=== PATIENT | male | born 1975 | race Caucasian/White ===

== ENCOUNTER 2024-01-10 18:29 | Emergency (ER) | payer OTHER, SELFPAY ==
[2024-01-10 18:35] VITALS: BP 179/101; PULSE 93; TEMP 36.8; O2SAT 95; BMI 29.5
--- NOTE | 2024-01-10 18:51 | CT_ITS ---
The [address] [address] Patient Name: LALITHA ASHTON MRN: [id number] date: 1975 Sex: M Assigned Patient Location: ER Current Patient Location: [facility] Accession/Order Number: [id number] Exam Date: 01/10/2024 19:17 Report Date: 01/10/2024 23:07 At the request of: NUHA ANDINO Procedure: CT cervical spine wo con EXAM: CT cervical spine wo con HISTORY: The patient is a 48-year-old male, neck pain COMPARISON: None. TECHNIQUE: CT images were obtained through the cervical spine without intravenous contrast and reformatted in 2 dimensions. Dose reduction techniques were achieved by using automated exposure control and/or adjustment of mA and/or kV according to patient size and/or use of iterative reconstruction technique. FINDINGS: The axial images demonstrate no fractures or cortical discontinuities throughout the cervical spine. The coronal and sagittal reformatted images demonstrate no fractures or loss of vertebral body height throughout the cervical spine. There is severe narrowing of the C5-C6 disc with slight retrolisthesis of C5 on C6. There is moderate disc space narrowing throughout the rest of the cervical spine. The soft tissue images demonstrate disc osteophyte complexes throughout the cervical spine. There is neural foraminal narrowing bilaterally at several levels. If clinically necessary, the degree of central canal stenosis and neural foraminal narrowing could be better evaluated with an MRI of the cervical spine. CT/CT cervical spine wo con IMPRESSION: 1. No fractures or loss of vertebral body height throughout the cervical spine. 2. Degenerative disc disease throughout the cervical spine. Electronically authenticated by: JAMES TORO Date: 01/10/2024 23:07
[2024-01-10 21:15] VITALS: BP 142/94; PULSE 93; O2SAT 94
--- NOTE | 2024-01-10 21:31 | ED_ITS ---
Documented by User: KACY Cruz 01/10/24 21:52 HPI HPI - Neck Pain/Injury General Chief Complaint: Neck Pain/Injury Stated Complaint: Neck Pain Time Seen by Provider: 01/10/24 18:51 Source: patient Mode of arrival: walk-in Limitations: no limitations History of Present Illness HPI Narrative: Patient is a 48-year-old male who presents to the emergency department for 2- week history of pain in the posterior cervical spine. He states he has hit his head twice accidentally while working in his basement and thinks that he compressed his neck. He complains of pain over the posterior cervical spine and paraspinal muscles. He has occasional tingling into the bilateral arms. He denies any direct injury to the neck. He reports pain with movement of the neck. He ambulated into the ER with a steady gait. No medications taken prior to arrival other than Tylenol occasionally with some relief. He has been using ice to apply to the area. He reports most of his difficulty with sleeping Related Data Home Medications ?Medication ?Instructions ?Recorded ?Confirmed fluticasone furoate 200 inhalation 01/10/24 mcg-vilanterol 25 mcg/dose inhalation powder (Breo Ellipta) losartan 50 mg tablet mg 01/10/24 naproxen 500 mg tablet mg 01/10/24 nebivolol 5 mg tablet mg 01/10/24 sildenafil 100 mg tablet mg 01/10/24 Previous Rx's ?Medication ?Instructions ?Recorded ketorolac 10 mg tablet 10 mg PO TID PRN pain #10 tabs 01/10/24 methocarbamol 750 mg tablet 750 mg PO TID PRN pain #20 tabs 01/10/24 methylprednisolone 4 mg tablets in See Rx Instructions .Route 01/10/24 a dose pack (Medrol (Branden)) .COMPLEX #21 ea Allergies Allergy/AdvReac Type Severity Reaction Status Date / Time No Known Drug Allergies Allergy Verified 01/10/24 18:42 Opioid HPI Opioid Management Most Recent Opioid Data: Last Pain Scale 5 01/10/24 21:54 Review of Systems ROS Constitutional Denies: fever or chills Ears, nose, mouth, and throat Reports: neck pain; Denies: throat pain or nasal congestion Respiratory Denies: shortness of breath Gastrointestinal Denies: nausea or vomiting Musculoskeletal Reports: neck pain; Denies: back pain, extremity pain or extremity swelling Integumentary/Breast Denies: rash Neurological Denies: headache Psychiatric Denies: difficulty concentrating Endocrine Denies: excessive urination Hematologic/Lymphatic Denies: easy bruising or easy bleeding Exam Narrative Exam Narrative: Gen.: Awake, alert, in no distress Head: Normocephalic, atraumatic ENT: Moist mucous membranes, Diffuse tenderness of the posterior cervical spine and paraspinal muscles with no obvious deformity or step-off Respiratory: No respiratory distress Extremities: Moves extremities equally, 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, normal biceps tendon strength Psych: Normal mood and affect Neuro: No focal neuro deficit Skin: Warm, dry, intact Constitutional Vital Signs, click to edit/add: Last Vital Signs Temp 98.2 F 01/10/24 18:35 Pulse 93 H 01/10/24 21:15 Resp 16 01/10/24 21:15 BP 142/94 H 01/10/24 21:15 Pulse Ox 94 L 01/10/24 21:15 O2 Del Method Room Air 01/10/24 21:15 Course Vital Signs Vital signs: Vital Signs Temperature 98.2 F 01/10/24 18:35 Pulse Rate 93 H 01/10/24 18:35 Respiratory Rate 16 01/10/24 18:35 Blood Pressure 179/101 H 01/10/24 18:35 Pulse Oximetry 95 01/10/24 18:35 Oxygen Delivery Method Room Air 01/10/24 18:35 Temperature 98.2 F 01/10/24 18:35 Pulse Rate 93 H 01/10/24 21:15 Respiratory Rate 16 01/10/24 21:15 Blood Pressure 142/94 H 01/10/24 21:15 Pulse Oximetry 94 L 01/10/24 21:15 Oxygen Delivery Method Room Air 01/10/24 21:15 MDM - Neck Pain/Injury MDM Narrative Medical decision making narrative: 2150: Patient ordered to have intramuscular Toradol and Solu-Medrol as he is driving himself home. He has a normal neuroexam with no focal neurodeficits. CT of the cervical spine is pending at this time, our radiology techs are having difficulty crossing the images over to the radiologist for remote read. Case turned over to attending physician at this time. SHARED APC VISIT, PHYSICIAN ATTESTATION: [id number] I performed a substantive part of the MDM during the patient?s E/M visit. I personally evaluated and examined the patient. I personally made or approved the documented management plan and acknowledge its risk of complications. Medical Records Attestation: I reviewed the patient's medical records. Discharge Plan Discharge Stand Alone Forms: Portal Instructions Chief Complaint: Neck Pain/Injury Clinical Impression: Cervical radiculopathy Patient Disposition: Home, Self-Care Prescriptions / Home Meds: New ketorolac 10 mg tablet 10 mg PO TID PRN (Reason: pain) Qty: 10 0RF methocarbamol 750 mg tablet 750 mg PO TID PRN (Reason: pain) Qty: 20 0RF methylprednisolone [Medrol (Branden)] 4 mg tablets,dose pack See Rx Instructions .ROUTE .COMPLEX Qty: 21 0RF Rx Instructions: Taper as directed No Action losartan 50 mg tablet sildenafil 100 mg tablet naproxen 500 mg tablet nebivolol 5 mg tablet fluticasone furoate-vilanterol [Breo Ellipta] 200-25 mcg/dose blister with device INHALATION Print Language: South Korean Instructions: Cervical Radiculopathy (ED) Additional Instructions: follow up with your doctor this upcoming week Referrals: JONNA VERA [Primary Care Provider] - 1 week Documented by User: Sumit Rodriguez MD 01/10/24 23:21 HPI HPI - Neck Pain/Injury General Chief Complaint: Neck Pain/Injury Stated Complaint: Neck Pain Time Seen by Provider: 01/10/24 18:51 Related Data Home Medications ?Medication ?Instructions ?Recorded ?Confirmed fluticasone furoate 200 inhalation 01/10/24 mcg-vilanterol 25 mcg/dose inhalation powder (Breo Ellipta) losartan 50 mg tablet mg 01/10/24 naproxen 500 mg tablet mg 01/10/24 nebivolol 5 mg tablet mg 01/10/24 sildenafil 100 mg tablet mg 01/10/24 Previous Rx's ?Medication ?Instructions ?Recorded ketorolac 10 mg tablet 10 mg PO TID PRN pain #10 tabs 01/10/24 methocarbamol 750 mg tablet 750 mg PO TID PRN pain #20 tabs 01/10/24 methylprednisolone 4 mg tablets in See Rx Instructions .Route 01/10/24 a dose pack (Medrol (Branden)) .COMPLEX #21 ea Allergies Allergy/AdvReac Type Severity Reaction Status Date / Time No Known Drug Allergies Allergy Verified 01/10/24 18:42 Opioid HPI Opioid Management Most Recent Opioid Data: Last Pain Scale 5 01/10/24 21:54 Exam Constitutional Vital Signs, click to edit/add: Last Vital Signs Temp 98.2 F 01/10/24 18:35 Pulse 93 H 01/10/24 21:15 Resp 16 01/10/24 21:15 BP 142/94 H 01/10/24 21:15 Pulse Ox 94 L 01/10/24 21:15 O2 Del Method Room Air 01/10/24 21:15 Course Vital Signs Vital signs: Vital Signs Temperature 98.2 F 01/10/24 18:35 Pulse Rate 93 H 01/10/24 18:35 Respiratory Rate 16 01/10/24 18:35 Blood Pressure 179/101 H 01/10/24 18:35 Pulse Oximetry 95 01/10/24 18:35 Oxygen Delivery Method Room Air 01/10/24 18:35 Temperature 98.2 F 01/10/24 18:35 Pulse Rate 93 H 01/10/24 21:15 Respiratory Rate 16 01/10/24 21:15 Blood Pressure 142/94 H 01/10/24 21:15 Pulse Oximetry 94 L 01/10/24 21:15 Oxygen Delivery Method Room Air 01/10/24 21:15 MDM - Neck Pain/Injury MDM Narrative Medical decision making narrative: 2150: Patient ordered to have intramuscular Toradol and Solu-Medrol as he is driving himself home. He has a normal neuroexam with no focal neurodeficits. CT of the cervical spine is pending at this time, our radiology techs are having difficulty crossing the images over to the radiologist for remote read. Case turned over to attending physician at this time. SHARED APC VISIT, PHYSICIAN ATTESTATION: [id number] I performed a substantive part of the MDM during the patient?s E/M visit. I personally evaluated and examined the patient. I personally made or approved the documented management plan and acknowledge its risk of complications. CT results returned without acute findings and patient is discharged home Discharge Plan Discharge Stand Alone Forms: Portal Instructions Chief Complaint: Neck Pain/Injury Clinical Impression: Cervical radiculopathy Patient Disposition: Home, Self-Care Prescriptions / Home Meds: New ketorolac 10 mg tablet 10 mg PO TID PRN (Reason: pain) Qty: 10 0RF methocarbamol 750 mg tablet 750 mg PO TID PRN (Reason: pain) Qty: 20 0RF methylprednisolone [Medrol (Branden)] 4 mg tablets,dose pack See Rx Instructions .ROUTE .COMPLEX Qty: 21 0RF Rx Instructions: Taper as directed No Action losartan 50 mg tablet sildenafil 100 mg tablet naproxen 500 mg tablet nebivolol 5 mg tablet fluticasone furoate-vilanterol [Breo Ellipta] 200-25 mcg/dose blister with device INHALATION Print Language: South Korean Instructions: Cervical Radiculopathy (ED) Additional Instructions: follow up with your doctor this upcoming week Referrals: JONNA VERA [Primary Care Provider] - 1 week
[2024-01-10] MEDS: KETOROLAC TROMETHAMINE 60 MG/2 ML VIAL IM (21:54)
[2024-01-10] MEDS: METHYLPREDNISOLONE SOD SUCC PF 125 MG/2 ML VIAL IM (21:54)
[2024-01-10] MEDS: HYDROCODONE/ACET 5-325 MG TABLET 2 TAB PO (23:46)
[2024-01-10] MEDS: METHOCARBAMOL 500 MG TABLET 1000 MG PO (23:46)
[2024-01-10 23:48] VITALS: BP 139/92; PULSE 82; O2SAT 96
== END 2024-01-10 23:51 | disposition home or self-care (01) ==
PROVIDERS: Emergency Provider Internal Medicine; PCP Family Medicine
DX: M54.12 Radiculopathy, cervical region (principal)
CPT/HCPCS: 72125; 96372; 99285; J1885; J2919